=== PATIENT | female | born 1990 | race Two or more races ===

== ENCOUNTER 2019-08-12 13:08 | Emergency (ER) | payer BC ==
--- NOTE | 2019-08-12 13:43 | EDM.PDOC ---
ED HPI GENERAL MEDICAL PROBLEM - General Chief Complaint: Respiratory Problem Stated Complaint: EMS Time Seen by Provider: 08/12/19 13:37 Source of Information: Reports: Patient History Limitations: Reports: No Limitations - History of Present Illness INITIAL COMMENTS - FREE TEXT/NARRATIVE: This 28 year old female is admitted to the ED via EMS with a chief complaint of coughing for four days. She also complains of coughing up yellow sputum on and off since Friday. She complains of mild SOB that seems to be getting better. No fever. Complains of chills earlier today. She denies any chest pain excepts for pain with coughing. She denies any other symptoms at this time. She has not traveled out of the area in the last several months. 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 Denies: Fever HEENT: Reports: No Symptoms Respiratory: Reports: Shortness of Breath (mild SOB.), Cough (for four days), Sputum (yellow sputum production). Denies: Hemoptysis Cardiovascular: Reports: No Symptoms Endocrine: Reports: No Symptoms GI/Abdominal: Reports: Anorexia (has not eaten all day and has not taken in fluids in 24 hours.) : Reports: No Symptoms Musculoskeletal: Reports: No Symptoms Skin: Reports: No Symptoms Neurological: Reports: No Symptoms ED EXAM, GENERAL - Physical Exam Exam: See Below Exam Limited By: No Limitations General Appearance: Alert, WD/WN, No Apparent Distress Ears: Normal External Exam, Normal Canal, Hearing Grossly Normal, Normal TMs Nose: Normal Inspection, Normal Mucosa Throat/Mouth: Normal Inspection, Normal Oropharynx, No Airway Compromise Head: Atraumatic, Normocephalic Neck: Normal Inspection, Supple, Non-Tender. No: Lymphadenopathy (L), Lymphadenopathy (R) Respiratory/Chest: No Respiratory Distress, Lungs Clear, Normal Breath Sounds, Chest Non-Tender. No: Crackles, Rales, Rhonchi, Wheezing, Prolonged Expiration Cardiovascular: Normal Peripheral Pulses, Regular Rate, Rhythm, No Edema, No Gallop, No JVD, No Murmur Peripheral Pulses: 3+: Radial (L), Radial (R), Dorsalis Pedis (L), Dorsalis Pedis (R) GI/Abdominal: Normal Bowel Sounds, Soft, Non-Tender, No Distention, No Abnormal Bruit, No Mass, Other (obese) (Female) Exam: Deferred Rectal (Female) Exam: Deferred Back Exam: Normal Inspection Extremities: Normal Inspection, Normal Range of Motion, Non-Tender, No Pedal Edema. No: Dung's Sign Neurological: Alert, Oriented (times 4), CN II-XII Intact, Normal Cognition, Normal Reflexes, No Motor/Sensory Deficits Psychiatric: Normal Affect, Normal Mood Skin Exam: Warm, Dry, Intact, Normal Color, No Rash Lymphatic: No Adenopathy Course - Vital Signs Text/Narrative:: I reviewed all of the patients labs and X-ray and shared the results with her. She will be discharged with the diagnosis of Acute Bronchitis. The patient agrees with the discharge plan. Last Recorded V/S: Last Vital Signs Temp 97.1 F 08/12/19 13:17 Pulse 76 08/12/19 15:12 Resp 16 08/12/19 15:12 BP 130/53 L 08/12/19 15:12 Pulse Ox 100 08/12/19 15:12 - Orders/Labs/Meds Orders: Active Orders 24 hr Category Date Time Status Azithromycin [Zithromax] Med 08/12/19 14:15 Active 500 mg PO Q24H Medication Orders Azithromycin (Zithromax) 500 mg PO Q24H [facility] Last Admin: 08/12/19 14:19 Dose: 500 mg Labs: Laboratory Tests 08/12/19 08/12/19 Range/Units 13:48 13:48 WBC 10.27 (4.0-11.0) K/uL RBC 4.67 (4.30-5.90) M/uL Hgb 9.7 L (12.0-16.0) g/dL Hct 34.2 L (36.0-46.0) % MCV 73.2 L (80.0-98.0) fL MCH 20.8 L (27.0-32.0) pg MCHC 28.4 L (31.0-37.0) g/dL RDW Std Deviation 42.8 (28.0-62.0) fl RDW Coeff of Sri 16 H (11.0-15.0) % Plt Count 377 (150-400) K/uL MPV 8.20 (7.40-12.00) fL Neut % (Auto) 60.2 (48.0-80.0) % Lymph % (Auto) 30.5 (16.0-40.0) % Story % (Auto) 7.4 (0.0-15.0) % Eos % (Auto) 1.6 (0.0-7.0) % Baso % (Auto) 0.3 (0.0-1.5) % Neut # (Auto) 6.2 H (1.4-5.7) K/uL Lymph # (Auto) 3.1 H (0.6-2.4) K/uL Story # (Auto) 0.8 (0.0-0.8) K/uL Eos # (Auto) 0.2 (0.0-0.7) K/uL Baso # (Auto) 0.0 (0.0-0.1) K/uL Nucleated RBC % 0.0 /100WBC Nucleated RBCs # 0 K/uL Sodium 140 (136-145) mmol/L Potassium 3.9 (3.5-5.1) mmol/L Chloride 102 (98-107) mmol/L Carbon Dioxide 27.3 (21.0-32.0) mmol/L BUN 11 (7.0-18.0) mg/dL Creatinine 0.7 (0.6-1.0) mg/dL Est Cr Clr Drug Dosing 100.74 mL/min Estimated GFR (MDRD) > 60.0 ml/min Glucose 93 (74-106) mg/dL Calcium 8.8 (8.5-10.1) mg/dL Total Bilirubin 0.2 (0.2-1.0) mg/dL AST 29 (15-37) IU/L ALT 41 (14-63) IU/L Alkaline Phosphatase 116 (46-116) U/L Total Protein 7.8 (6.4-8.2) g/dL Albumin 3.6 (3.4-5.0) g/dL Globulin 4.2 H (2.6-4.0) g/dL Albumin/Globulin Ratio 0.9 (0.9-1.6) Meds: Medications Generic Name Dose Route Start Last Admin Trade Name Freq PRN Reason Stop Dose Admin Azithromycin 500 mg 08/12/19 14:15 08/12/19 14:19 Zithromax PO 500 mg Q24H ALINE Administration Discontinued Medications Generic Name Dose Route Start Last Admin Trade Name Freq PRN Reason Stop Dose Admin Acetaminophen 650 mg 08/12/19 15:04 08/12/19 15:11 Tylenol PO 08/12/19 15:05 650 mg NOW ONE Administration Benzonatate 200 mg 08/12/19 14:12 08/12/19 14:19 Tessalon Perles PO 08/12/19 14:13 200 mg ONETIME ONE Administration Sodium Chloride 1,000 mls @ 1,000 mls/hr 08/12/19 14:06 08/12/19 14:14 Normal Saline IV 08/12/19 15:05 1,000 mls/hr .Bolus ONE Administration Departure - Departure Time of Disposition: 16:17 Disposition: Home, Self-Care 01 Condition: Good Clinical Impression: Bronchitis - Discharge Information *PRESCRIPTION DRUG MONITORING PROGRAM REVIEWED*: Yes *COPY OF PRESCRIPTION DRUG MONITORING REPORT IN PATIENT KURT: Yes Instructions: Acute Bronchitis, Adult, [id number] Referrals: PCP,None [Primary Care Provider] - Forms: ED Department Discharge Additional Instructions: Take all medications as directed. Follow up with your PCP in the next two to four days. Drink plenty of clear liquids for the next 24-48 hours. Rest for the next 24 hours. Return to the ED if your condition gets worse or should you have any questions or concerns. The following information is given to patients seen in the emergency department who are being discharged to home. This information is to outline your options for follow-up care. We provide all patients seen in our emergency department with a follow-up referral. The need for follow-up, as well as the timing and circumstances, are variable depending upon the specifics of your emergency department visit. If you don't have a primary care physician on staff, we will provide you with a referral. We always advise you to contact your personal physician following an emergency department visit to inform them of the circumstance of the visit and for follow-up with them and/or the need for any referrals to a consulting specialist. The emergency department will also refer you to a specialist when appropriate. This referral assures that you have the opportunity for follow-up care with a specialist. All of these measure are taken in an effort to provide you with optimal care, which includes your follow-up. Under all circumstances we always encourage you to contact your private physician who remains a resource for coordinating your care. When calling for follow-up care, please make the office aware that this follow-up is from your recent emergency room visit. If for any reason you are refused follow-up, please contact the [facility] Emergency Department at and asked to speak to the emergency department charge nurse. Sepsis Event Note - Evaluation Sepsis Screening Result: No Definite Risk - Focused Exam Vital Signs: Vital Signs Temp Pulse Resp BP Pulse Ox 08/12/19 15:12 76 16 130/53 L 100 08/12/19 14:14 77 16 100 08/12/19 13:17 97.1 F 89 17 114/46 L 100 Date Exam was Performed: 08/12/19 Time Exam was Performed: 16:14 - My Orders Last 24 Hours: My Active Orders 08/12/19 14:15 Azithromycin [Zithromax] 500 mg PO Q24H - Assessment/Plan Last 24 Hours: My Active Orders 08/12/19 14:15 Azithromycin [Zithromax] 500 mg PO Q24H
[2019-08-12] MEDS ORDERED: Sodium Chloride 0.9% 1,000 ML IV ONE (14:06)
--- NOTE | 2019-08-12 14:08 | CR ---
Chest: AP view of the chest was obtained. Comparison: No previous chest x-rays available. Heart size and mediastinum are normal. Lungs are clear with no acute parenchymal change. Bony structures are grossly intact. Impression: 1. Nothing acute is appreciated on AP chest x-ray. Diagnostic code #1 This report was dictated in MDT
[2019-08-12] MEDS ORDERED: Benzonatate 100 MG Cap PO ONE (14:12)
[2019-08-12] MEDS ORDERED: Azithromycin 250 MG Tab PO SCH (14:15)
[2019-08-12 14:17] LABS: BLOOD UREA NITROGEN,BUN 11 mg/dL (7.0-18.0); CARBON DIOXIDE,CO2 27.3 mmol/L (21.0-32.0); CHLORIDE,CL 102 mmol/L (98-107); GLUCOSE RANDOM 93 mg/dL (74-106); POTASSIUM,K 3.9 mmol/L (3.5-5.1); SODIUM,NA 140 mmol/L (136-145)
[2019-08-12] MEDS ORDERED: Acetaminophen 325 MG Tab PO ONE (15:04)
== END 2019-08-12 16:30 | disposition home or self-care (01) ==
LOC: MW.ED 13:08
DX: J40 Bronchitis, not specified as acute or chronic (principal)
CPT/HCPCS: 36415; 71045; 80053; 85025; 96360; 99285; A9270; J7030; 99283

== ENCOUNTER 2020-12-10 16:52 | Emergency (ER) | payer BC ==
--- NOTE | 2020-12-10 17:16 | EDM.PDOC ---
ED HPI GENERAL MEDICAL PROBLEM - General Chief Complaint: Lower Extremity Injury/Pain Stated Complaint: LEFT FOOT HURTING Time Seen by Provider: 12/10/20 16:52 Source of Information: Reports: Patient History Limitations: Reports: No Limitations - History of Present Illness INITIAL COMMENTS - FREE TEXT/NARRATIVE: 30-year-old female presents for left toe injury. Patient was walking up steps when she missed the last step and stubbed her left toe. This occurred last night. She noticed bruising and swelling to the area this morning. She has been taking Motrin for pain with last dose last night. She is concerned it may be fractured. No other injuries. 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 ED EXAM, GENERAL - Physical Exam Exam: See Below Exam Limited By: No Limitations General Appearance: Alert, WD/WN, No Apparent Distress Ears: Hearing Grossly Normal Throat/Mouth: Normal Voice, No Airway Compromise Head: Atraumatic, Normocephalic Respiratory/Chest: No Respiratory Distress, No Accessory Muscle Use Cardiovascular: Normal Peripheral Pulses Extremities: Other (ecchymosis and mild swelling of L great toe; no overt deformity) Neurological: Alert, Normal Cognition, Normal Gait Psychiatric: Normal Affect, Normal Mood Skin Exam: Warm, Dry, Intact, Normal Color Course - Orders/Labs/Meds Meds: Medications Discontinued Medications Generic Name Dose Route Start Last Admin Trade Name Freq PRN Reason Stop Dose Admin Ibuprofen 600 mg 12/10/20 17:33 12/10/20 17:41 Ibuprofen 600 Mg Tab PO 12/10/20 17:34 600 mg ONETIME ONE Administration - Re-Assessments/Exams Free Text/Narrative Re-Assessment/Exam: 12/10/20 17:33 Will get XR imaging of the toe; will f/u results and dispo accordingly. Motrin for pain. 12/10/20 18:00 X-ray imaging is unremarkable. Will discharge patient with instructions take Motrin as needed for pain. Departure - Departure Time of Disposition: 18:00 Disposition: Home, Self-Care 01 Condition: Good Clinical Impression: Sprain of toe, great, left Qualifiers: Encounter type: initial encounter Qualified Code(s): S93.502A - Unspecified sprain of left great toe, initial encounter - Discharge Information Instructions: Foot Sprain Referrals: PCP,None [Primary Care Provider] - Forms: ED Department Discharge Additional Instructions: The following information is given to patients seen in the emergency department who are being discharged to home. This information is to outline your options for follow-up care. We provide all patients seen in our emergency department with a follow-up referral. The need for follow-up, as well as the timing and circumstances, are variable depending upon the specifics of your emergency department visit. If you don't have a primary care physician on staff, we will provide you with a referral. We always advise you to contact your personal physician following an emergency department visit to inform them of the circumstance of the visit and for follow-up with them and/or the need for any referrals to a consulting specialist. The emergency department will also refer you to a specialist when appropriate. This referral assures that you have the opportunity for follow-up care with a specialist. All of these measure are taken in an effort to provide you with optimal care, which includes your follow-up. Under all circumstances we always encourage you to contact your private physician who remains a resource for coordinating your care. When calling for follow-up care, please make the office aware that this follow-up is from your recent emergency room visit. If for any reason you are refused follow-up, please contact the [facility] Emergency Department at and asked to speak to the emergency department charge nurse. Please follow up with your primary care physician. If you do not have a primary care physician, see below: [facility] [address] [place] [address] [id number] [facility] [address] [place] [address] [phone] [facility] [address], [place] [address]
[2020-12-10] MEDS ORDERED: Ibuprofen 600 MG Tab PO ONE (17:33)
--- NOTE | 2020-12-10 17:56 | CR ---
Indication: Stubbed great toe. Technique: Three views of the left great toe were obtained. Comparison: None Findings: An os trigonum is present. No fracture or subluxation is identified. Mild degenerative changes are identified at the 1st interphalangeal joint space. Impression: No fracture. Dictated by Stefany Samayoa MD @ 12/10/2020 5:54:[address] Stefany Samayoa @ Dec 10 2020 5:54PM
== END 2020-12-10 18:21 | disposition home or self-care (01) ==
LOC: MW.ED 16:52
DX: S93.502A Unspecified sprain of left great toe, initial encounter (principal); W22.8XXA Striking against or struck by other objects, initial encounter; Y93.01 Activity, walking, marching and hiking
CPT/HCPCS: 73660; 99283; A9270

== ENCOUNTER 2021-04-11 13:48 | Emergency (ER) | payer SELFPAY ==
[2021-04-11] MEDS ORDERED: Diphtheria,Pertussis(Acell),Tetanus Vaccine 0.5 ML Syringe IM ONE (14:08)
--- NOTE | 2021-04-11 14:09 | EDM.PDOC ---
ED HPI GENERAL MEDICAL PROBLEM - General Chief Complaint: Laceration Stated Complaint: LACERATION TO LEFT POINTER FINGER Time Seen by Provider: 04/11/21 14:01 Source of Information: Reports: Patient History Limitations: Reports: No Limitations - History of Present Illness INITIAL COMMENTS - FREE TEXT/NARRATIVE: Patient is a 30-year-old female who presents today for laceration to her left index finger. She was using a knife and cut her finger. She is able control the bleeding with Placing coffee grounds on it and I am applying pressure. She denies any other cuts or injuries has no other complaints at this moment. Left Finger-Index Pain Score (Numeric/FACES): 5 - Related Data Allergies Allergy/AdvReac Type Severity Reaction Status Date / Time No Known Allergies Allergy Verified 04/11/21 14:06 Home Meds: Home Meds . 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: - Past Surgical History GI Surgical History: Reports: Bariatric Procedure Other GI Surgeries/Procedures: Sleeve Procedure in 2011 Female Surgical History: Reports: Section Social & Family History - Caffeine Use Caffeine Use: Reports: Coffee ED ROS GENERAL - Review of Systems Review Of Systems: See Below Constitutional: Reports: No Symptoms HEENT: Reports: No Symptoms Respiratory: Reports: No Symptoms Cardiovascular: Reports: No Symptoms Endocrine: Reports: No Symptoms GI/Abdominal: Reports: No Symptoms : Reports: No Symptoms Musculoskeletal: Reports: No Symptoms Skin: Reports: Other (lac to finger) Neurological: Reports: No Symptoms Psychiatric: Reports: No Symptoms Hematologic/Lymphatic: Reports: No Symptoms Immunologic: Reports: No Symptoms ED EXAM, SKIN/RASH Exam: See Below Exam Limited By: No Limitations General Appearance: Alert, WD/WN, No Apparent Distress Eye Exam: Bilateral Eye: EOMI Ears: Normal External Exam Nose: Normal Inspection Head: Atraumatic, Normocephalic Respiratory/Chest: No Respiratory Distress Extremities: Normal Range of Motion, Non-Tender, Other (Small lac well approximated it does not separate does not require sutures on the left index finger) Neurological: Alert, Oriented, Normal Cognition, Normal Gait Location, Skin: Other (lac index finger well approximated no sutures required) Course - Vital Signs Last Recorded V/S: Last Vital Signs Temp 97.5 F 04/11/21 14:07 Pulse 58 L 04/11/21 14:07 Resp 17 04/11/21 14:07 BP 113/36 L 04/11/21 14:07 Pulse Ox 100 04/11/21 14:07 - Orders/Labs/Meds Orders: Active Orders 24 hr Category Date Time Status Vaccine to be Administered/Admin Charge [RC] ASDIRECTED Care 04/11/21 14:09 Active Meds: Medications Discontinued Medications Generic Name Dose Route Start Last Admin Trade Name Karla PRN Reason Stop Dose Admin Diphtheria/Tetanus/Acell Pertussis 0.5 ml 04/11/21 14:08 04/11/21 14:28 Diphtheria,Pertussis(Acell),Tetanus Vaccine 0.5 Ml Syringe IM 04/11/21 14:09 0.5 ml .ONCE ONE Administration Departure - Departure Time of Disposition: 14:07 Disposition: Home, Self-Care 01 Condition: Good Clinical Impression: Laceration of finger of left hand - Discharge Information Instructions: Nonsutured Laceration Care Referrals: PCP,None [Primary Care Provider] - Forms: ED Department Discharge Additional Instructions: You were seen today after suffering a cut to your index finger. It is well approximated and does not require any sutures at this time. Please continue to apply bacitracin to the finger for the next 3 to 5 days. If you have any redness or drainage please return to ED otherwise follow with your primary care physician. We also updated your tetanus shot today. The following information is given to patients seen in the emergency department who are being discharged to home. This information is to outline your options for follow-up care. We provide all patients seen in our emergency department with a follow-up referral. The need for follow-up, as well as the timing and circumstances, are variable depending upon the specifics of your emergency department visit. If you don't have a primary care physician on staff, we will provide you with a referral. We always advise you to contact your personal physician following an emergency department visit to inform them of the circumstance of the visit and for follow-up with them and/or the need for any referrals to a consulting specialist. The emergency department will also refer you to a specialist when appropriate. This referral assures that you have the opportunity for follow-up care with a specialist. All of these measure are taken in an effort to provide you with optimal care, which includes your follow-up. Under all circumstances we always encourage you to contact your private physician who remains a resource for coordinating your care. When calling for follow-up care, please make the office aware that this follow-up is from your recent emergency room visit. If for any reason you are refused follow-up, please contact the [facility] Emergency Department at and asked to speak to the emergency department charge nurse. Please follow up with your primary care physician. If you do not have a primary care physician, see below: [facility] [address] [place] [id number] My [facility] [address] [place] [phone] Sepsis Event Note (ED) - Focused Exam Vital Signs: Vital Signs Temp Pulse Resp BP Pulse Ox 04/11/21 14:07 97.5 F 58 L 17 113/36 L 100 - My Orders Last 24 Hours: My Active Orders 04/11/21 14:09 Vaccine to be Administered/Admin Charge [RC] ASDIRECTED - Assessment/Plan Last 24 Hours: My Active Orders 04/11/21 14:09 Vaccine to be Administered/Admin Charge [RC] ASDIRECTED Plan: Patient is a 30-year-old female who suffered a laceration to her left index finger. On exam is well approximated does not require any sutures or Steri- Strips or Dermabond. Patient will have her tetanus updated and will follow up with primary care.
== END 2021-04-11 14:43 | disposition home or self-care (01) ==
LOC: MW.ED 13:48
DX: S61.211A Laceration without foreign body of left index finger without damage to nail, initial encounter (principal); Z23 Encounter for immunization; W26.0XXA Contact with knife, initial encounter
CPT/HCPCS: 90471; 90715; 99282

== ENCOUNTER 2023-04-10 21:20 | Emergency (ER) | payer BC ==
[2023-04-10] MEDS ORDERED: Lidocaine 4% 1 each Patch TOP PRN (22:06)
[2023-04-10] MEDS ORDERED: Acetaminophen 325 MG Tab PO ONE (22:07)
[2023-04-10] MEDS ORDERED: Ketorolac 30 MG/ML SDV IM ONE (22:07)
== END 2023-04-10 23:46 | disposition home or self-care (01) ==
LOC: MW.ED 21:20
DX: M25.552 Pain in left hip (principal)
CPT/HCPCS: 96372; 99283; A9270; J1885

== ENCOUNTER 2023-07-05 08:45 | Emergency (ER) | payer BC ==
[2023-07-05 09:16] LABS: BASOPHILS ABSOLUTE AUTO 0.03 K/uL (0.00-0.20); BASOPHILS PERCENT AUTO 0.2 % (0.0-1.0); EOSINOPHILS ABSOLUTE AUTO 0.22 K/uL (0.00-0.45); EOSINOPHILS PERCENT AUTO 1.6 % (0.0-6.0); HEMOGLOBIN 8.2 g/dL (12.0-16.0); IMMATURE GRAN ABSOLUTE AUTO 0.03 K/uL (0.00-0.05); IMMATURE GRAN PERCENT AUTO 0.2 % (0.0-0.4); LYMPHOCYTES ABSOLUTE AUTO 0.96 K/uL (1.00-4.80); MEAN CORPUSCULAR HEMOGLOBIN 18.7 pg (28.0-32.0); MEAN CORPUSCULAR HGB CONC 27.3 g/dL (32.0-36.0); MEAN CORPUSCULAR VOLUME 68.5 fL (83.0-99.0); MEAN PLATELET VOLUME 8.2 fL (9.4-12.3); MONOCYTES ABSOLUTE AUTO 0.68 K/uL (0.00-0.80); NEUTROPHILS ABSOLUTE AUTO 11.73 K/uL (1.80-7.70); PLATELET COUNT,PLT 444 K/uL (150-400); RED BLOOD CELL COUNT 4.38 M/uL (4.10-5.30); WHITE BLOOD CELL COUNT,WBC 13.65 K/uL (3.9-11.3)
[2023-07-05] MEDS: Sodium Chloride 0.9% 1,000 ML IV ONE (09:21)
[2023-07-05 09:47] LABS: A/G RATIO 0.8 (0.9-1.6); ALANINE AMINOTRANSFERASE,ALT 40 IU/L (14-63); ALBUMIN 3.4 g/dL (3.4-5.0); ALKALINE PHOSPHATASE 134 U/L (46-116); ASPARTATE AMNIOTRANSFERASE,AST 28 IU/L (15-37); BILIRUBIN TOTAL 0.3 mg/dL (0.2-1.0); BLOOD UREA NITROGEN,BUN 11 mg/dL (7.0-18.0); CALCIUM 8.3 mg/dL (8.5-10.1); CARBON DIOXIDE,CO2 21.5 mmol/L (21.0-32.0); CHLORIDE,CL 104 mmol/L (98-107); CREATININE 0.7 mg/dL (0.6-1.0); EST CRCL DRUG DOSING (CG) 97.21 mL/min; ESTIMATED GFR 119 mL/min (>60); GLUCOSE RANDOM 111 mg/dL (74-106); MAGNESIUM 1.7 mg/dL (1.8-2.4); PROTEIN TOTAL,TP 7.7 g/dL (6.4-8.2); SODIUM,NA 140 mmol/L (136-145); TSH ULTRASENSITIVE 1.02 uIU/mL (0.36-3.74)
== END 2023-07-05 10:05 | disposition home or self-care (01) ==
LOC: MW.ED 08:45
DX: R55 Syncope and collapse (principal); D64.9 Anemia, unspecified
CPT/HCPCS: 36415; 71045; 80053; 83735; 84443; 84484; 84703; 85025; 96360; 99284; J7030; 93010; 99282